=== PATIENT | female | born 1970 | race African-American/Black ===

== ENCOUNTER 2016-07-27 05:46 | Emergency (ER) | payer MEDICAID ==
[~2016-07-27] VITALS: Ht 167.6 cm; Wt 75.0 kg
[2016-07-27 05:55] VITALS: BP 129/72
== END 2016-07-27 09:21 | disposition left against medical advice (07) ==
LOC: ER 08:15
DX: M79.89 Other specified soft tissue disorders (principal); Z53.21 Procedure and treatment not carried out due to patient leaving prior to being seen by health care provider